=== PATIENT | male | born 1965 | race Caucasian/White ===

== ENCOUNTER 2017-03-13 17:35 | Emergency (ER) | payer OTHER ==
[~2017-03-13] VITALS: Ht 177.8 cm; Wt 111.5 kg
[2017-03-13 17:48] VITALS: Ht 177.8 cm; Wt 111.5 kg
[2017-03-13] MEDS ORDERED: HYDROCODONE/APAP (5/325) TAB PO ONE (19:00)
--- NOTE | 2017-03-13 19:37 | RADRPT ---
PROCEDURE: Left ankle x-ray CLINICAL INDICATION: Trauma to the left ankle at the lateral malleolus. Pain, with reference bianca er directed towards the distal left fibula. TECHNIQUE: 3 views left ankle. COMPARISON: None. FINDINGS: No acute fracture or dislocation. Mild soft tissue swelling over the ankle, greater at the lateral ankle. Soft tissues are otherwise unremarkable. IMPRESSION: No acute fracture. RPTAT: [facility] Physician Tatianna Date Time Electronically viewed and signed by Caleb Mccurdy Physician on 03/13/2017 19:37 RS/
--- NOTE | 2017-03-13 19:46 | ERD ---
ER Documentation Chief Complaint Date/Time DATE: 03/13/17 TIME: 19:41 Chief Complaint LEFT ANKLE INJURY WITH SWELLING HPI This 51-year-old male presents emergency department today complaining of left ankle pain and swelling for the past 2 days. States that 2 days ago he hit his left ankle against the curb that stops your car in a parking lot. States he put ice on it. States he has pain with ambulation. Denies any fevers or chills. ROS All systems reviewed and are negative except as per history of present illness. Medications Home Meds Active Scripts Acetaminophen* (Tylophen*) 500 Mg Capsule, 1 CAP PO Q6H Y for PAIN AND OR ELEVATED TEMP, #30 CAP Prov:DARCIE PENA PA-C 03/13/17 Naproxen* (Naprosyn*) 500 Mg Tablet, 500 MG PO BID Y for PAIN AND/OR INFLAMMATION, #30 TAB Prov:DARCIE PENA PA-C 03/13/17 Hydrocodone/Acetaminophen (Walcott 5-325 Tablet) 1 Each Tablet, 1 TAB PO Q6H Y for PAIN, #12 TAB Prov:DARCIE PENA PA-C 03/13/17 PMhx/Soc Medical and Surgical Hx: pt denies Surgical Hx Hx Miscellaneous Medical Probl: Yes (dm) Hx Alcohol Use: No Hx Substance Use: No Hx Tobacco Use: No Smoking Status: Never smoker Physical Exam Vitals Vital Signs Date Time Temp Pulse Resp B/P Pulse Ox O2 Delivery O2 Flow Rate FiO2 03/13/17 17:48 97.9 70 18 145/63 98 Physical Exam Const: Obese, no acute distress Head: Atraumatic Eyes: Normal Conjunctiva ENT: Normal External Ears, Nose and Mouth. Neck: Full range of motion..~ No meningismus. Resp: Clear to auscultation bilaterally Cardio: Regular rate and rhythm, no murmurs Abd: Soft, non tender, non distended. Normal bowel sounds Skin: No petechiae or rashes. Mild bruising lateral aspect of ankle. No erythema or warmth Back: No midline or flank tenderness Ext: Left foot with no obvious deformity. Mild effusion over medial and lateral aspect of malleolus. Full active range of motion. Pulses 2+. Distal neurovascularly intact. Neur: Awake and alert Psych: Normal Mood and Affect Results 24 hrs Current Medications Medications (Trade) Dose Ordered Sig/Mercedes Route PRN Reason Start Time Stop Time Status Last Admin Dose Admin Acetaminophen/ Hydrocodone Bitart (Walcott (5/492)) 1 tab ONCE ONCE PO 03/13/17 19:00 03/13/17 19:01 DC 03/13/17 19:02 DIAGNOSTIC IMAGING REPORT Patient: BILLY COLLADO : 1965 Age: 51 Sex: M MR #: [id number] DOS: 03/13/17 0000 Ordering MD: DARCIE PENA PA-C Location: [facility] Room/Bed: PROCEDURE: Left ankle x-ray CLINICAL INDICATION: Trauma to the left ankle at the lateral malleolus. Pain , with reference marker directed towards the distal left fibula. TECHNIQUE: 3 views left ankle. COMPARISON: None. FINDINGS: No acute fracture or dislocation. Mild soft tissue swelling over the ankle, greater at the lateral ankle. Soft tissues are otherwise unremarkable. IMPRESSION: No acute fracture. RPTAT: [facility] Physician Tatianna Date Time Electronically viewed and signed by Physician Tatianna on 03/13/2017 19:37 RS/ CC: DARCIE PENA PA-C Procedures/MDM This 51-year-old male presents emergency department today for left ankle pain and swelling after hitting it against a curb 2 days ago. On physical exam patient had swelling over his medial and lateral malleolus and therefore did obtain images. Per the radiology report images of the left ankle show no acute fracture dislocation. There is mild soft tissue swelling over the ankle greater at the lateral ankle. Soft tissues are unremarkable There is no erythema or warmth and he is afebrile and otherwise well-appearing and I do not feel that he has septic joint or gout. Low suspicion for osteomyelitis or cellulitis. Patient symptoms at this time is consistent with contusion versus sprain versus strain Patient was given Walcott here in the emergency department. He was given crutches to help ambulate as well as an Wes wrap. He will be given a prescription for short course of Walcott, Naprosyn and Tylenol for home. He was instructed to take his regular diabetes medications. At this time the patient is stable for discharge and outpatient management. Patient should follow up with their PCP in the next 1-2 days. They may return to the emergency department sooner for any persistent or worsening of symptoms. Patient understood and agreed with the plan. Departure Diagnosis: Primary Impression: Ankle pain Laterality: left Chronicity: acute Qualified Code: M25.572 - Acute left ankle pain Condition: Fair DARCIE PENA PA-C Mar 13, 2017 19:46
[2017-03-13] MEDS ORDERED: HYDR-906 PO (19:50)
[2017-03-13] MEDS ORDERED: NAPR-260 PO (19:51)
[2017-03-13] MEDS ORDERED: ACET500C5 PO (19:51)
== END 2017-03-13 21:54 | disposition home or self-care (01) ==
LOC: FTE 17:35
DX: M25.572 Pain in left ankle and joints of left foot (principal); E11.9 Type 2 diabetes mellitus without complications
CPT/HCPCS: 73610; Z7502; Z7610

== ENCOUNTER 2018-08-04 08:32 | Emergency (ER) | END 2018-08-04 10:44 | disposition home or self-care (01) ==